=== PATIENT | male | born 1975 | race Hispanic/Latino ===

== ENCOUNTER 2017-02-07 05:49 | Emergency (ER) | payer OTHER ==
[~2017-02-07] VITALS: Ht 165.1 cm; Wt 88.6 kg
[2017-02-07 06:08] VITALS: BP 133/84; PULSE 70; RESP 16; O2SAT 99
--- NOTE | 2017-02-07 06:12 | ED.REPORT ---
HPI-Extremity Problem Lower Date of Service Feb 07, 2017 ED Provider: Imani Brown MD The pt is a 41 y/o male presenting to the ED complaining of L ankle pain. The pain is affecting him primarily near his left malleolus. He reports tripping and falling on his L foot [place]. The pt is able to walk on it but it causes him a severe pain. He reports a severity of 5-6/10 while he is not moving his foot and an 8/10 when he moves it. He has not taken any pain medication for the pain and has never broken his foot or ankle in the past. Nursing Notes Stated Complaint: LEFT ANKLE PAIN Chief Complaint: Extremity Trauma Nursing Notes Reviewed: Yes Allergies: Coded Allergies: No Known Allergies (Unverified , 02/07/17) Scheduled PRN Ibuprofen (Ibuprofen) 600 Mg Tablet 600 MG PO QID PRN PRN For Pain General Time Seen by MD: 06:12 Chief Complaint Ankle injury left Hx Obtained From: Patient Arrived By: Walk-in Onset Occurred: Just prior to arrival Symptom Duration: Since onset Recent Healthcare: No recent doctor visit, No recent hospitalization Similar Sx Previous: No Past Medical History Past Medical History None reported Past Surgical History None reported Social History Alcohol Use: "Social" Ambulatory Status Independent Review of Systems Musculoskeletal: Reports: Joint pain (L ankle), Joint swelling (L ankle) Complete sys rev & neg: except as marked. Physical Exam Initial Vital Signs Vital Signs (First) Date Time Temp Pulse Resp B/P Pulse Ox O2 Delivery O2 Flow Rate FiO2 02/07/17 06:08 36.3 70 16 133/84 99 Room Air General/Constitutional: Well-developed, Well-nourished Head / Eyes: Atraumatic, Normocephalic, PERRL Neck: Supple, Non-tender, Full range of motion Respiratory: Breath sounds normal, Clear to auscultation, No respiratory distress Abdomen / GI: Soft, Non-tender, No guarding, No rebound, No distention Upper Extremities: Vascular intact, Neuro intact, No swelling, No tenderness Skin: Warm, Dry, No cyanosis Neurologic: Alert, Oriented, Nonfocal Psychiatric: Mood/affect normal, Behavior normal, Normal thought content Lower Extremity / Pelvis / MS: Neurologic intact, Vascular intact No tenderness at proximal L fibula Non tenderness w/ squeezing of L calf Left Ankle: Positive: Tender lateral malleolus Severe tenderness over achilles insertion of L ankle Able to take steps w/ significant pain Interpretation & Diagnostics X-Ray Interpretation X-Ray Ordered: Ankle left Interpretation / Wet Read by: Wet read ED physician Interpretation: No fracture/dislocation Re-Eval/Medical Decision Source of Hx: Old records Re-Evaluation/Progress : Time of Eval: 07:44 Re-Evaluation/Progress Note: Pt rechecked. Informed pt of plan for treatment. Pt understands and agrees with plan for treatment. F/U instructions and RTER warnings given. All questions addressed. Ankle air stirrup was applied. Counseled Regarding: Diagnosis, Lab results, Need for follow-up, When/why to return to ED Discharge & Departure Impression: Primary Impression: Ankle sprain Encounter type: initial encounter Involved ligament of ankle: unspecified ligament Laterality: left Qualified Code: S93.402A - Sprain of unspecified ligament of left ankle, initial encounter Disposition: Home Discharge Condition All VS Reviewed: Yes Condition: Stable Additional Instructions: You did not break your ankle. Use the brace as needed for pain. Use ibuprofen for pain every 6 hours. If you are not getting better, you may need to see a geothermal hvac technician. Pleas call Dr Muñoz, his clinic information is below Usted no se rompi el tobillo. Use el soporte florentin sea necesario para el dolor. Utilizar ibuprofeno para el dolor cada 6 horas. Si no obtiene mejor, puede que necesite lamar a un podatrist. Las splicas llamada Dr Muñoz, vargas informacin clnica est por debajo de Referrals: [facility] Scribe Attestation Portions of this note were transcribed by Desean Ndiaye. I, Dr. Brown personally performed the history, physical exam and medical decision-making; I reviewed and confirmed the accuracy of the information in the transcribed note. Signed by : Anthony Castrejon, 02/07/17 and 0701. copies to: [facility] Imani Brown MD Feb 07, 2017 06:12 Desean Ndiaye Feb 07, 2017 07:00
[2017-02-07] MEDS ORDERED: oxyCODONE-Acetamin 5-325 mg Tablet PO ONE (06:25)
[2017-02-07] MEDS ORDERED: IBUP-1827 PO (07:47)
[2017-02-07 08:02] VITALS: BP 133/89; PULSE 59; RESP 16; O2SAT 98
--- NOTE | 2017-02-12 14:51 | DRSVH ---
CORRECTED MR NUMBER ON 02/12/17 PROCEDURE: X-RAY LEFT ANKLE, MINIMUM THREE VIEWS ([id number]) INDICATIONS: pain TECHNIQUE: 3 views of the ankle were acquired. COMPARISON: None. FINDINGS: Bones: No fractures or dislocations. Ankle mortise is normally aligned. No suspicious bony lesions . Plantar calcaneal spur. Small chronic appearing os cuboid. Tibiotalar joint space appears grossly preserved. Soft tissues: No tibiotalar joint effusion. Achilles tendon appears normal. IMPRESSION: Plantar calcaneal spur. Dictated by: Hema Campo M.D. on 02/07/2017 at 8:57 Approved by: Hema Campo M.D. on 02/07/2017 at 8:58
== END 2017-02-07 08:00 | disposition home or self-care (01) ==
LOC: SED 05:49 → EDUNIT# 05:49 → SED 08:00
DX: S93.492A Sprain of other ligament of left ankle, initial encounter (principal); W01.0XXA Fall on same level from slipping, tripping and stumbling without subsequent striking against object, initial encounter; Y93.89 Activity, other specified; Y92.39 Other specified sports and athletic area as the place of occurrence of the external cause; Y99.0 Civilian activity done for income or pay